=== PATIENT | female | born 1980 | race Caucasian/White ===

== ENCOUNTER 2017-10-04 10:00 | Emergency (ER) | payer SELFPAY ==
[~2017-10-04] VITALS: Ht 177.8 cm; Wt 90.7 kg
[2017-10-04 12:05] VITALS: BP 131/84
== END 2017-10-04 14:49 | disposition home or self-care (01) ==
LOC: ER 10:00
DX: K59.00 Constipation, unspecified (principal); K64.4 Residual hemorrhoidal skin tags
CPT/HCPCS: 74018